=== PATIENT | male | born 1985 | race Caucasian/White ===

== ENCOUNTER 2019-03-03 07:45 | Inpatient (IN) | payer MEDICAID ==
[~2019-03-03] VITALS: Ht 175.3 cm; Wt 81.5 kg
--- NOTE | 2019-03-03 08:28 | NUR ---
PT WITH SIGNIFIGANT SWELLING IN R HAND AND R THUMB AREA. PT STATES HE TRIED TO SHOOT UP HEROIN IN A VEIN IN HIS HAND AND THINKS THAT HE MISSED. SWELLING BEGAN THREE DAYS AGO. PT ALSO WITH LOW GRADE TEMP. 99.3. ERPROVIDER IN TO EVAL PT, PIV INITIATED, AWAITING BC TO BEGIN IV ABX, LAB IN TO DRAW AT THIS TIME, PT TO BP, CONT PULSE OX MONITORING
[2019-03-03] MEDS ORDERED: DIPH,PERTUSS(ACELL),TET VAC/PF 0.5 ML IM-VACC ONE ×2 (08:44→09:00)
[2019-03-03] MEDS ORDERED: SODIUM CHLORIDE 0.9% 1,000ML IVBOLUS ONE (09:00)
[2019-03-03] MEDS ORDERED: AMPICILLIN/SULBACTAM 3 GM in SODIUM CHLORIDE 0.9% 100 ML IV ONE (09:00)
--- NOTE | 2019-03-03 09:25 | NUR ---
PT MEDICATED PER MAR
[2019-03-03] MEDS ORDERED: SODIUM CHLORIDE FLUSH 10ML SYR IVF ONE (09:30)
[2019-03-03 09:56] LABS: BASOPHILS # (AUTO) 0.03 x10^3/uL (0-0.1); BASOPHILS % (AUTO) 0 % (0-1); EOSINOPHILS # (AUTO) 0.08 x10^3/uL (0-0.4); EOSINOPHILS % (AUTO) 1 % (1-7); LYMPHOCYTES # (AUTO) 1.63 x10^3/uL (1-3.4); LYMPHOCYTES % (AUTO) 12 % (22-44); MD NO; MEAN CORPUSCULAR HEMOGLOBIN 29.5 pg (27.5-34.5); MEAN CORPUSCULAR HGB CONC 32.6 g/dL (33.2-36.2); MEAN CORPUSCULAR VOLUME 90.3 fL (81-97); MONOCYTES # (AUTO) 0.72 x10^3/uL (0.2-0.8); MONOCYTES % (AUTO) 5 % (2-9); NEUTROPHILS # (AUTO) 11.13 x10^3/uL (1.8-6.8); NEUTROPHILS % (AUTO) 82 % (42-75); PLATELET COUNT 156 x10^3/uL (130-400); RED BLOOD COUNT 4.18 x10^6/uL (4.38-5.82); RED CELL DISTRIBUTION WIDTH 12.4 % (9.4-14.8)
[2019-03-03 10:18] LABS: ALBUMIN 2.8 g/dL (3.4-5.0); ANION GAP 8 mmol/L (5-15); CHLORIDE 112 mmol/L (98-107)
--- NOTE | 2019-03-03 10:20 | NUR ---
DELAY IN CARE-PT DIFFICULT STICK, LAB ATTEMPTS X5 TO OBTAIN LABWORK FOR TESTING- PT RESTING ON GURNEY AT THIS TIME, PROVIDED WARM BLANKET FOR COMFORT. NAD NOTED
[2019-03-03] MEDS ORDERED: VANCOMYCIN PER PHARMACY MC PRN (10:30)
[2019-03-03] MEDS ORDERED: ONDANSETRON ODT 4 MG PO PRN (10:30)
[2019-03-03 10:32] LABS: ALANINE AMINOTRANSFERASE 21 U/L (12-78); ALKALINE PHOSPHATASE 47 U/L (45-117); BILIRUBIN,TOTAL 0.5 mg/dL (0.2-1.0); CREATININE 0.62 mg/dL (0.7-1.3); TOTAL PROTEIN 6.3 g/dL (6.4-8.2)
--- NOTE | 2019-03-03 10:37 | NUR ---
ADMITTING MD IN TO [facility] PT
[2019-03-03] MEDS ORDERED: POTASSIUM CHLORIDE 20 MEQ TAB.ER.PRT PO ONE (11:00)
--- NOTE | 2019-03-03 11:00 | NUR ---
PT TO IMAGING AT THIS TIME
[2019-03-03 11:13] LABS: HCT (SEDRATE) 37.9 % (39.2-51.8)
[2019-03-03 11:26] LABS: C-REACTIVE PROTEIN, QUANT 7.6 mg/dL (0.02-0.49)
[2019-03-03] MEDS ORDERED: GADOTERATE 10 MMOL/20 ML SYR ONE (11:30)
[2019-03-03] MEDS: SODIUM CHLORIDE 0.9% 1,000 ML IV SCH ×2 (11:52→16:02)
--- NOTE | 2019-03-03 11:53 | NUR ---
PT BACK FROM IMAGING, PT RECONNECTED TO MONITORING EQUIPMENT. PROVIDED WITH ADDITIONAL WARM BLANKET PER REQUEST, MEAL TRAY ORDERED FOR PT. VSS, NAD NOTED
--- NOTE | 2019-03-03 12:33 | NUR ---
PT GIVEN LUNCH TRAY. NO OTHER NEEDS AT THIS TIME, PT TO BE ADMITTED, AWAITING BED PLACEMENT
--- NOTE | 2019-03-03 12:56 | NUR ---
I AM ASSUMING CARE OF THIS PT WHILE WICHO (RN) ENJOYS A LUNCH BREAK. SBAR WAS EXCHANGED AT THE BEDSIDE.
[2019-03-03] MEDS ORDERED: POTASSIUM CHLORIDE 20 MEQ TAB.ER.PRT ONE (13:05)
--- NOTE | 2019-03-03 13:09 | NUR ---
PT ENJIOYING LUNCH TRAY AT THE BEDSIDE. NO ACUTE CHANGES NOTED UPON MY ASSESSMENT.
[2019-03-03] MEDS ORDERED: POTASSIUM PHOSPHATE 44 MEQ in SODIUM CHLORIDE 0.9% 500 ML IV ONE (15:00)
--- NOTE | 2019-03-03 15:20 | NUR ---
REPORT CALLED TO RECIEVING RN
[2019-03-03] MEDS ORDERED: VANCOMYCIN 1,900 MG in SODIUM CHLORIDE 0.9% 250 ML IV ONE (16:00)
[2019-03-03] MEDS ORDERED: PHARMACOKINETIC MONITORING MC PRN (16:00)
[2019-03-03] MEDS ORDERED: PHARMACOKINETIC CONSULTATION MC ONE (16:00)
[2019-03-03] MEDS: HYDROcodone/APAP 5/325 TABLET PO PRN ×2 (19:44→20:21)
[2019-03-03 20:09] VITALS: BP 124/82
[2019-03-04 00:34] VITALS: BP 139/82
[2019-03-04] MEDS: ACETAMINOPHEN 325 MG TABLET PO PRN ×2 (00:38→14:50)
[2019-03-04 05:44] LABS: BASOPHILS # (AUTO) 0.26 x10^3/uL (0-0.1); BASOPHILS % (AUTO) 2 % (0-1); EOSINOPHILS # (AUTO) 0.14 x10^3/uL (0-0.4); EOSINOPHILS % (AUTO) 1 % (1-7); LYMPHOCYTES # (AUTO) 1.48 x10^3/uL (1-3.4); LYMPHOCYTES % (AUTO) 10 % (22-44); MD NO; MEAN CORPUSCULAR HEMOGLOBIN 29.5 pg (27.5-34.5); MEAN CORPUSCULAR HGB CONC 32.7 g/dL (33.2-36.2); MEAN CORPUSCULAR VOLUME 90.2 fL (81-97); MEAN PLATELET VOLUME 8.1 fL (7.4-10.4); MONOCYTES # (AUTO) 0.83 x10^3/uL (0.2-0.8); MONOCYTES % (AUTO) 5 % (2-9); NEUTROPHILS # (AUTO) 12.93 x10^3/uL (1.8-6.8); NEUTROPHILS % (AUTO) 83 % (42-75); PLATELET COUNT 337 x10^3/uL (130-400); RED BLOOD COUNT 4.56 x10^6/uL (4.38-5.82); RED CELL DISTRIBUTION WIDTH 12.4 % (9.4-14.8)
[2019-03-04 05:49] LABS: ALBUMIN 3.1 g/dL (3.4-5.0); ANION GAP 5 mmol/L (5-15); CALCIUM 9.2 mg/dL (8.5-10.1); CHLORIDE 108 mmol/L (98-107)
[2019-03-04 05:53] LABS: ALANINE AMINOTRANSFERASE 17 U/L (12-78); ALKALINE PHOSPHATASE 62 U/L (45-117); BILIRUBIN,TOTAL 0.5 mg/dL (0.2-1.0); CREATININE 0.77 mg/dL (0.7-1.3); TOTAL PROTEIN 7.1 g/dL (6.4-8.2)
[2019-03-04 07:34] VITALS: BP 119/78
[2019-03-04] MEDS: VANCOMYCIN 1,200 MG in SODIUM CHLORIDE 0.9% 250 ML IV SCH ×2 (09:01→19:37)
[2019-03-04] MEDS: SODIUM CHLORIDE 0.9% 1,000 ML IV SCH ×2 (09:07→21:00)
[2019-03-04] MEDS ORDERED: FENTANYL PF 250 MCG/5ML ONE (12:58)
[2019-03-04] MEDS ORDERED: BUPIVACAINE/PF 0.5% INFIL ONE (13:59)
[2019-03-04] MEDS ORDERED: BUPIVACAINE/PF 0.5% ONE (14:08)
[2019-03-04] MEDS ORDERED: SUCCINYLCHOLINE 20 MG/ML, 10ML ONE (14:27)
[2019-03-04] MEDS ORDERED: PROPOFOL 10 MG/ML, 20ML ONE (14:27)
[2019-03-04] MEDS ORDERED: DEXAMETHASONE 4 MG/ML, 1ML ONE (14:27)
[2019-03-04] MEDS ORDERED: CEFAZOLIN 1,000 MG ONE (14:27)
[2019-03-04] MEDS ORDERED: GLYCOPYRROLATE 0.2MG/1ML, 5ML ONE (14:27)
[2019-03-04] MEDS ORDERED: ROCURONIUM 10MG/ML,5ML ONE (14:27)
[2019-03-04] MEDS ORDERED: ONDANSETRON 2MG/ML, 2ML ONE (14:27)
[2019-03-04] MEDS ORDERED: NEOSTIGMINE 1 MG/ML, 10ML ONE (14:27)
[2019-03-04] MEDS ORDERED: POTASSIUM PHOSPHATE 44 MEQ in SODIUM CHLORIDE 0.9% 500 ML IV ONE (14:30)
[2019-03-04] MEDS ORDERED: HYDROmorphone 1 MG/ML, 1ML INJ ONE (14:33)
[2019-03-04] MEDS ORDERED: FENTANYL PF 100 MCG/2ML ONE (14:33)
[2019-03-04] MEDS: FENTANYL PF 100 MCG/2ML IV PRN ×3 (14:35→14:45)
[2019-03-04] MEDS ORDERED: ACETAMINOPHEN 650 MG/20.3 ML UDC ONE (14:49)
[2019-03-04] MEDS ORDERED: OXYcodone 5 MG/5 ML ORAL.SOL UDC ONE (14:49)
[2019-03-04] MEDS: HYDROmorphone 2 MG/ML, 1ML IVPush PRN ×2 (14:50→14:55)
[2019-03-04] MEDS ORDERED: OXYcodone 5 MG/5 ML ORAL.SOL UDC PO PRN (15:00)
[2019-03-04] MEDS ORDERED: HALOPERIDOL 5 MG/ML IV PRN (15:00)
[2019-03-04] MEDS ORDERED: LABETALOL 5MG/ML, 20ML IV PRN (15:00)
[2019-03-04] MEDS ORDERED: hydrALAzine 20 MG/ML, 1ML IV PRN (15:00)
[2019-03-04] MEDS ORDERED: PROMETHAZINE 25 MG/ML, 1ML IV PRN (15:00)
[2019-03-04] MEDS ORDERED: MEPERIDINE/PF 25MG/ML,1ML IVPush PRN (15:00)
[2019-03-04] MEDS ORDERED: MEPERIDINE/PF 25MG/ML,1ML ONE (15:08)
[2019-03-04 15:58] VITALS: BP 134/90
[2019-03-04] MEDS: AMPICILLIN/SULBACTAM 3 GM in SODIUM CHLORIDE 0.9% 100 ML IV SCH ×2 (16:11→22:14)
[2019-03-04] MEDS: HYDROcodone/APAP 5/325 TABLET PO PRN (18:38)
[2019-03-04 20:22] VITALS: BP 129/72
[2019-03-04] MEDS: morphine SULFATE 10 MG/ML, 1ML IVPush PRN (21:38)
[2019-03-05 02:30] VITALS: BP 125/74
[2019-03-05] MEDS: AMPICILLIN/SULBACTAM 3 GM in SODIUM CHLORIDE 0.9% 100 ML IV SCH ×4 (04:39→23:28)
[2019-03-05] MEDS: SODIUM CHLORIDE 0.9% 1,000 ML IV SCH ×2 (04:39→16:50)
[2019-03-05 06:13] LABS: ANION GAP 7 mmol/L (5-15); CALCIUM 8.7 mg/dL (8.5-10.1); CHLORIDE 108 mmol/L (98-107); CREATININE 0.58 mg/dL (0.7-1.3)
[2019-03-05 06:16] LABS: BASOPHILS # (AUTO) 0.04 x10^3/uL (0-0.1); BASOPHILS % (AUTO) 0 % (0-1); EOSINOPHILS % (AUTO) 0 % (1-7); LYMPHOCYTES # (AUTO) 1.09 x10^3/uL (1-3.4); LYMPHOCYTES % (AUTO) 7 % (22-44); MD NO; MEAN CORPUSCULAR HEMOGLOBIN 29.7 pg (27.5-34.5); MEAN CORPUSCULAR HGB CONC 32.8 g/dL (33.2-36.2); MEAN CORPUSCULAR VOLUME 90.5 fL (81-97); MEAN PLATELET VOLUME 8.3 fL (7.4-10.4); MONOCYTES # (AUTO) 0.85 x10^3/uL (0.2-0.8); MONOCYTES % (AUTO) 5 % (2-9); NEUTROPHILS # (AUTO) 14.52 x10^3/uL (1.8-6.8); NEUTROPHILS % (AUTO) 88 % (42-75); PLATELET COUNT 380 x10^3/uL (130-400); RED BLOOD COUNT 4.12 x10^6/uL (4.38-5.82); RED CELL DISTRIBUTION WIDTH 12.6 % (9.4-14.8)
[2019-03-05] MEDS: HYDROcodone/APAP 5/325 TABLET PO PRN ×2 (06:29→12:47)
[2019-03-05] MEDS: VANCOMYCIN 1,200 MG in SODIUM CHLORIDE 0.9% 250 ML IV SCH ×2 (08:52→21:00)
[2019-03-05 10:34] VITALS: BP 126/77
[2019-03-05 14:25] VITALS: BP 136/80
[2019-03-05 20:30] VITALS: BP 121/72
[2019-03-05] MEDS: VANCOMYCIN PMX 1GM/200ML 200 ML IVPB SCH (21:42)
[2019-03-05] MEDS: DAKIN'S SOLUTION 1/4 STRENGTH 1,000 ML IRRIG SOLN EXT SCH (22:32)
[2019-03-05] MEDS: morphine SULFATE 10 MG/ML, 1ML IVPush PRN (22:44)
[2019-03-06] MEDS: SODIUM CHLORIDE 0.9% 1,000 ML IV SCH ×2 (02:14→17:12)
[2019-03-06 02:22] VITALS: BP 121/80
[2019-03-06] MEDS: AMPICILLIN/SULBACTAM 3 GM in SODIUM CHLORIDE 0.9% 100 ML IV SCH ×3 (05:04→18:06)
[2019-03-06 05:55] LABS: BASOPHILS # (AUTO) 0.04 x10^3/uL (0-0.1); BASOPHILS % (AUTO) 1 % (0-1); EOSINOPHILS % (AUTO) 2 % (1-7); LYMPHOCYTES # (AUTO) 1.76 x10^3/uL (1-3.4); LYMPHOCYTES % (AUTO) 21 % (22-44); MD NO; MEAN CORPUSCULAR HEMOGLOBIN 29.5 pg (27.5-34.5); MEAN CORPUSCULAR HGB CONC 32.7 g/dL (33.2-36.2); MEAN CORPUSCULAR VOLUME 90.3 fL (81-97); MONOCYTES # (AUTO) 0.56 x10^3/uL (0.2-0.8); MONOCYTES % (AUTO) 7 % (2-9); NEUTROPHILS # (AUTO) 5.87 x10^3/uL (1.8-6.8); NEUTROPHILS % (AUTO) 70 % (42-75); PLATELET COUNT 397 x10^3/uL (130-400); RED BLOOD COUNT 4.26 x10^6/uL (4.38-5.82); RED CELL DISTRIBUTION WIDTH 12.6 % (9.4-14.8)
[2019-03-06 05:59] LABS: ALANINE AMINOTRANSFERASE 18 U/L (12-78); ALBUMIN 2.8 g/dL (3.4-5.0); ANION GAP 6 mmol/L (5-15); CALCIUM 8.8 mg/dL (8.5-10.1); CHLORIDE 111 mmol/L (98-107); CREATININE 0.75 mg/dL (0.7-1.3)
[2019-03-06 06:01] LABS: ALKALINE PHOSPHATASE 47 U/L (45-117); BILIRUBIN,TOTAL 0.2 mg/dL (0.2-1.0); TOTAL PROTEIN 6.9 g/dL (6.4-8.2)
[2019-03-06] MEDS: VANCOMYCIN PMX 1GM/200ML 200 ML IVPB SCH ×3 (06:11→22:52)
[2019-03-06 07:31] VITALS: BP 122/73
[2019-03-06] MEDS: DAKIN'S SOLUTION 1/4 STRENGTH 1,000 ML IRRIG SOLN EXT SCH (08:08)
[2019-03-06] MEDS: morphine SULFATE 10 MG/ML, 1ML IVPush PRN (08:10)
[2019-03-06 16:06] VITALS: BP 133/87
[2019-03-06] MEDS: HYDROcodone/APAP 5/325 TABLET PO PRN (18:31)
[2019-03-06 19:32] VITALS: BP 133/80
[2019-03-07] MEDS: DAKIN'S SOLUTION 1/4 STRENGTH 1,000 ML IRRIG SOLN EXT SCH ×3 (00:20→21:22)
[2019-03-07] MEDS: AMPICILLIN/SULBACTAM 3 GM in SODIUM CHLORIDE 0.9% 100 ML IV SCH ×5 (00:23→22:52)
[2019-03-07 00:43] VITALS: BP 132/82
[2019-03-07] MEDS: SODIUM CHLORIDE 0.9% 1,000 ML IV SCH ×2 (04:22→09:36)
[2019-03-07 06:12] LABS: BASOPHILS # (AUTO) 0.03 x10^3/uL (0-0.1); BASOPHILS % (AUTO) 0 % (0-1); EOSINOPHILS % (AUTO) 1 % (1-7); LYMPHOCYTES # (AUTO) 1.45 x10^3/uL (1-3.4); LYMPHOCYTES % (AUTO) 17 % (22-44); MD NO; MEAN CORPUSCULAR HEMOGLOBIN 29.3 pg (27.5-34.5); MEAN CORPUSCULAR HGB CONC 33.1 g/dL (33.2-36.2); MEAN CORPUSCULAR VOLUME 88.6 fL (81-97); MEAN PLATELET VOLUME 7.8 fL (7.4-10.4); MONOCYTES # (AUTO) 0.58 x10^3/uL (0.2-0.8); MONOCYTES % (AUTO) 7 % (2-9); NEUTROPHILS # (AUTO) 6.31 x10^3/uL (1.8-6.8); NEUTROPHILS % (AUTO) 75 % (42-75); PLATELET COUNT 442 x10^3/uL (130-400); RED BLOOD COUNT 4.56 x10^6/uL (4.38-5.82); RED CELL DISTRIBUTION WIDTH 12.4 % (9.4-14.8)
[2019-03-07 06:24] LABS: ALBUMIN 3.1 g/dL (3.4-5.0); ANION GAP 7 mmol/L (5-15); CALCIUM 8.9 mg/dL (8.5-10.1); CHLORIDE 109 mmol/L (98-107)
[2019-03-07 06:30] LABS: ALANINE AMINOTRANSFERASE 25 U/L (12-78); ALKALINE PHOSPHATASE 49 U/L (45-117); BILIRUBIN,TOTAL 0.5 mg/dL (0.2-1.0); CREATININE 0.79 mg/dL (0.7-1.3); TOTAL PROTEIN 7.3 g/dL (6.4-8.2)
[2019-03-07 07:28] VITALS: BP 132/68
[2019-03-07] MEDS: morphine SULFATE 10 MG/ML, 1ML IVPush PRN ×3 (07:32→23:02)
[2019-03-07] MEDS: VANCOMYCIN PMX 1GM/200ML 200 ML IVPB SCH (07:32)
[2019-03-07 07:52] VITALS: BP 118/73
[2019-03-07] MEDS: HYDROcodone/APAP 5/325 TABLET PO PRN (10:06)
[2019-03-07 14:40] VITALS: BP 135/86
[2019-03-07 20:01] VITALS: BP 135/84
[2019-03-08 01:57] VITALS: BP 114/67
[2019-03-08] MEDS: AMPICILLIN/SULBACTAM 3 GM in SODIUM CHLORIDE 0.9% 100 ML IV SCH ×3 (05:14→20:06)
[2019-03-08 06:28] LABS: BASOPHILS # (AUTO) 0.02 x10^3/uL (0-0.1); BASOPHILS % (AUTO) 0 % (0-1); EOSINOPHILS # (AUTO) 0.17 x10^3/uL (0-0.4); EOSINOPHILS % (AUTO) 2 % (1-7); LYMPHOCYTES # (AUTO) 2.36 x10^3/uL (1-3.4); LYMPHOCYTES % (AUTO) 27 % (22-44); MD NO; MEAN CORPUSCULAR HEMOGLOBIN 29.7 pg (27.5-34.5); MEAN CORPUSCULAR HGB CONC 33.5 g/dL (33.2-36.2); MEAN CORPUSCULAR VOLUME 88.7 fL (81-97); MEAN PLATELET VOLUME 7.2 fL (7.4-10.4); MONOCYTES # (AUTO) 0.59 x10^3/uL (0.2-0.8); MONOCYTES % (AUTO) 7 % (2-9); NEUTROPHILS % (AUTO) 64 % (42-75); PLATELET COUNT 451 x10^3/uL (130-400); RED BLOOD COUNT 4.56 x10^6/uL (4.38-5.82); RED CELL DISTRIBUTION WIDTH 12.6 % (9.4-14.8)
[2019-03-08 06:33] LABS: ALBUMIN 3.1 g/dL (3.4-5.0); CALCIUM 8.7 mg/dL (8.5-10.1); CHLORIDE 108 mmol/L (98-107)
[2019-03-08 06:39] LABS: ALANINE AMINOTRANSFERASE 24 U/L (12-78); ALKALINE PHOSPHATASE 48 U/L (45-117); ANION GAP 7 mmol/L (5-15); BILIRUBIN,TOTAL 0.3 mg/dL (0.2-1.0); CREATININE 0.85 mg/dL (0.7-1.3); TOTAL PROTEIN 7.1 g/dL (6.4-8.2)
[2019-03-08] MEDS: HYDROcodone/APAP 5/325 TABLET PO PRN ×3 (07:17→23:29)
[2019-03-08 07:52] VITALS: BP 127/77
[2019-03-08] MEDS ORDERED: ERTAPENEM 1 GM in SODIUM CHLORIDE 0.9% 50 ML IV SCH (08:00)
[2019-03-08] MEDS: DAKIN'S SOLUTION 1/4 STRENGTH 1,000 ML IRRIG SOLN EXT SCH ×2 (09:15→20:06)
[2019-03-08] MEDS: morphine SULFATE 10 MG/ML, 1ML IVPush PRN ×2 (09:50→20:06)
[2019-03-08 15:30] VITALS: BP 125/76
[2019-03-08 20:24] VITALS: BP 132/94
[2019-03-09 00:11] VITALS: BP 152/92
[2019-03-09] MEDS: AMPICILLIN/SULBACTAM 3 GM in SODIUM CHLORIDE 0.9% 100 ML IV SCH ×3 (02:06→16:00)
[2019-03-09] MEDS: morphine SULFATE 10 MG/ML, 1ML IVPush PRN (02:10)
[2019-03-09] MEDS: HYDROcodone/APAP 5/325 TABLET PO PRN ×2 (04:51→09:50)
[2019-03-09 08:32] VITALS: BP 118/79
[2019-03-09] MEDS: DAKIN'S SOLUTION 1/4 STRENGTH 1,000 ML IRRIG SOLN EXT SCH (09:00)
[2019-03-09 13:29] VITALS: BP 130/88
[2019-03-09] MEDS ORDERED: AMOX1TAB64 PO (13:30)
== END 2019-03-09 16:25 | disposition home or self-care (01) | DRG 580 ==
LOC: ED 10:40 → EDIP 10:45 → 3N 15:40 → DCLOUNGE 03-09 16:21
PROVIDERS: ADMIT Internal Medicine Infectious Disease; ATTEND Hospitalist
PROC: 0JBJ0ZZ Excision of Right Hand Subcutaneous Tissue and Fascia, Open Approach (ICD-10-PCS; principal; 2019-03-04 13:30)
DX: L02.511 Cutaneous abscess of right hand (principal); E87.2 Acidosis; E87.6 Hypokalemia; F11.10 Opioid abuse, uncomplicated; F15.90 Other stimulant use, unspecified, uncomplicated; B95.4 Other streptococcus as the cause of diseases classified elsewhere; D64.9 Anemia, unspecified; T40.2X5A Adverse effect of other opioids, initial encounter; E83.39 Other disorders of phosphorus metabolism; L03.011 Cellulitis of right finger; Z90.49 Acquired absence of other specified parts of digestive tract; Z83.3 Family history of diabetes mellitus; Z82.49 Family history of ischemic heart disease and other diseases of the circulatory system; Z87.891 Personal history of nicotine dependence; Y92.89 Other specified places as the place of occurrence of the external cause; Z71.51 Drug abuse counseling and surveillance of drug abuser; Z23 Encounter for immunization
CPT/HCPCS: 36415; 73130; 87806; 96361; 96365; 96375; 99285; S0020; 80048; 80053; 80074; 80202; 83605; 83735; 84100; 85025; 85651; 86140; 87040; 87070; 87075; 87205; 90471; 90715; 93306; G0378; J0295; J0690; J1100; J1170; J1335; J2405; J2704; J2710; J3010; J3370; A9575; G0475; J0330; J2175; J2270; J7030; J7040; J7050